=== PATIENT | female | born 1985 | race Caucasian/White ===

== ENCOUNTER 2017-04-24 14:47 | Emergency (ER) | payer OTHER ==
[~2017-04-24] VITALS: Ht 165.1 cm; Wt 60.0 kg
[2017-04-24 14:51] VITALS: Ht 165.1 cm; Wt 60.0 kg
[2017-04-24] MEDS ORDERED: SOD CHLORIDE 0.9% 1,000 ML IV STA (16:30)
--- NOTE | 2017-04-24 16:30 | ERD ---
ER Documentation Chief Complaint Chief Complaint pelvic pain, back pain and watery discharge since yesterday, 17wks HPI This female reports 16-17 weeks , pelvic presure and cramping x 2 days watery d/c this am, denies blood , + dysuria ROS All systems reviewed and are negative except as per history of present illness. PMhx/Soc Medical and Surgical Hx: pt denies Medical Hx, pt denies Surgical Hx Physical Exam Vitals Vital Signs Date Time Temp Pulse Resp B/P Pulse Ox O2 Delivery O2 Flow Rate FiO2 04/24/17 14:51 98.6 103 18 139/80 96 Physical Exam Const: Well-nourished well-appearing well-hydrated 32-year-old female Head: Eyes: ENT: Neck: Resp: Clear to auscultation bilaterally Cardio: Regular rate and rhythm, no murmurs Abd: 's abdomen Skin: Back: No midline or flank tenderness Ext: No cyanosis, or edema Neur: Awake and alert Psych: Normal Mood and Affect Result Diagram: 04/24/17 1736 Results 24 hrs Laboratory Tests Test 04/24/17 17:00 04/24/17 17:36 Urine Color YELLOW Urine Clarity CLEAR Urine pH 6.0 Urine Specific [place] 1.010 Urine Ketones NEGATIVEmg/dL Urine Nitrite NEGATIVEmg/dL Urine Bilirubin NEGATIVEmg/dL Urine Urobilinogen NEGATIVEmg/dL Urine Leukocyte Esterase NEGATIVELeu/ul Urine Microscopic RBC 2/HPF Urine Microscopic WBC 1/HPF Urine Bacteria FEW/HPF Urine Hemoglobin 1+mg/dL Urine Glucose NEGATIVEmg/dL Urine Total Protein NEGATIVEmg/dl White Blood Count 9.110^3/ul Red Blood Count 3.6610^6/ul Hemoglobin 11.6g/dl Hematocrit 34.1% Mean Corpuscular Volume 93.2fl Mean Corpuscular Hemoglobin 31.7pg Mean Corpuscular Hemoglobin Concent 34.0g/dl Red Cell Distribution Width 13.1% Platelet Count 60485^3/UL Mean Platelet Volume 11.6fl Neutrophils % 69.6% Lymphocytes % 21.5% Monocytes % 6.9% Eosinophils % 1.1% Basophils % 0.3% Nucleated Red Blood Cells % 0.0/100WBC Neutrophils # 6.310^3/ul Lymphocytes # 2.010^3/ul Monocytes # 0.610^3/ul Eosinophils # 0.110^3/ul Basophils # 0.010^3/ul Nucleated Red Blood Cells # 0.010^3/ul B-Type Natriuretic Peptide 69PG/ML Beta HCG, Quantitative 49479.0mIU/ml Current Medications Medications (Trade) Dose Ordered Sig/Marry Route PRN Reason Start Time Stop Time Status Last Admin Dose Admin Sodium Chloride (NS) 1,000 ml @ 1,000 mls/hr Q1H STAT IV 04/24/17 16:30 04/24/17 17:29 DC 04/24/17 16:30 Acetaminophen (Tylenol Tab) 650 mg ONCE ONCE PO 04/24/17 17:00 04/24/17 17:01 DC 04/24/17 17:08 Interpretation text CBC shows no evidence of hemorrhage or infections BNP shows no evidence of acute congestive heart failure, and or volume overload. Urinalysis today for evidence of infection, no nitrates, leukocytosis or hematuria. Beta qualitative normal for 17 weeks of Procedures/MDM ROCEDURE: Obstetrical ultrasound CLINICAL INDICATION: Pain TECHNIQUE: Multiple sonographic images of the pelvis were obtained. The images were reviewed on a PACS workstation. COMPARISON: None LMP: 12/25/2016 FINDINGS: There is a single viable intrauterine gestation. Cardiac activity is present with 152 beats per minute. There is a variable presentation. The placenta is anterior and there is a complete placenta previa. There is no evidence for an abruption. There is a normal amount of amniotic fluid with a maximum vertical pocket of 4.9 cm.. Measurements were made in order to determine age. The results are as follows (cm): BPD = 3.97 HC = 14.30 AC = 12.36 FL = 2.37 Estimated gestational age by ultrasound of approximately 17 weeks, 5-day. The estimated date of delivery by ultrasound is 09/27/2017. Estimated gestational age by LMP of approximately 17 weeks, 1 day. The estimated date of delivery by LMP is 10/01/2017. EFW = 202 grams (73rd percentile) IMPRESSION: Single viable intrauterine gestation of approximately 17 weeks, 5 days . The estimated date of delivery is 09/27/2017 . Dating by ultrasound is within 4 days of dating by LMP. Anterior placenta with a complete placenta previa. Normal amount of amniotic fluid. Estimated weight is in the 73rd percentile. RPTAT: EE Uriel Valle, Physician Date Time This 32-year-old female presents to emergency department with low vaginal pressure, pelvic pain and cramping, watery discharge this morning, patient denies any bloody discharge, reports dysuria, and back pain, reports nausea is at baseline. Emergency room course includes serology, urinalysis, and OB ultrasound. Tylenol given for pain, obstetrical ultrasound available before lab testing, impression from radiologist single viable intrauterine gestation approximately 17 weeks, 5 days the estimated date of delivery is 09/27/2017. Anterior placenta with complete placenta previa the on-call OBGYN consulted case discussed. Patient is able to discharge home once all laboratory testing is available and no abnormal findings, follow-up with primary gynecology return to emergency department for worsening of cramping, or vaginal bleeding. Urinalysis negative for leukocytosis, nitrates, microscopic hematuria noted. CBC is negative for infection, positive anemia. Patient to continue her vitamins, follow-up with [employer] as discussed above. Patient is stable with no new complaints during ER course, clinically there is no current evidence to suggest urinary tract infection, pyelonephritis acute abdomen, acute coronary syndromes, pulmonary embolism or any other emergent condition appearing to require further evaluation or hospitalization. I feel the patient is stable for discharge at this time. I have discussed results, examination findings, the treatment plan with the patient and family present prior to discharge. Indications for emergent reevaluation, side effects of medication were also discussed. All questions were answered. Patient verbalizes understanding and agrees with plan of care. Departure Diagnosis: Primary Impression: Placenta previa antepartum in second trimester Condition: Good Patient Instructions: Placenta Previa Additional Instructions: Thank you for for coming to [facility] for your care today. Please ask your nurse or provider if you have questions about your care today and do not leave until all your questions have been answered. Please use any medications given as directed and follow-up with your doctor (or the doctor you were referred to) in the next 2-3 days. If you do not have a primary care doctor you may follow up at the [facility] (listed below). You may also use motrin and tylenol as needed for fever and/or pain unless instructed otherwise by your provider or nurse. Indications for more urgent follow-up have been discussed, but you may return to the Emergency Department at ANY time for any worrisome or worsening symptoms. If you have abdominal pain, please know that no test or exam you received is perfect and you should follow up within 8 hours for continued pain. If you had any imaging studies today, such as an X-Ray or CT Scan, these studies will be reviewed later by a radiologist. You will be called if there are important findings that were not identified today, so make sure the contact information you provided at registration is correct. If you received any narcotic pain control medicine today, such as Vicodin, Morphine or Dilaudid, your coordination and judgment may be affected for a number of hours. Please do not drive or operate heavy machinery, and you may want someone to assist you at home. If you were given a prescription for narcotic medication, be aware that it is very addictive- use sparingly and only if necessary. NOLVIA HERNANDEZ Apr 24, 2017 16:30
[2017-04-24] MEDS ORDERED: ACETAMINOPHEN 325 MG TAB PO ONE (17:00)
--- NOTE | 2017-04-24 17:15 | RADRPT ---
PROCEDURE: Obstetrical ultrasound CLINICAL INDICATION: Pain TECHNIQUE: Multiple sonographic images of the pelvis were obtained. The images were reviewed on a PACS workstation. COMPARISON: None LMP: 12/25/2016 FINDINGS: There is a single viable intrauterine gestation. Cardiac activity is present with 152 beats per minute. There is a variable presentation. The placenta is anterior and there is a complete placenta previa. There is no evidence for an abrupt ion. There is a normal amount of amniotic fluid with a maximum vertical pocket of 4.9 cm.. Measurements were made in order to determine age. The results are as follows (cm): BPD =3.97 HC =14.30 AC =12.36 FL =2.37 Estimated gestational age by ultrasound of approximately 17 weeks, 5-day. The estimated date of delivery by ultrasound is 09/27/2017. Estimated gestational age by LMP of approximately 17 weeks, 1 day. The estimated date of delivery by LMP is 10/01/2017. EFW = 202 grams (73rd percentile) IMPRESSION: Single viable intrauterine gestation of approximately 17 weeks, 5 days . The estimated date of delivery is 09/27/2017 . Dating by ultrasound is within 4 days of dating by LMP. Anterior placenta with a complete placenta previa. Normal amount of amniotic fluid. Estimated weight is in the 73rd percentile. RPTAT: EE Physician Nadya Date Time Electronically viewed and signed by Physician Nadya on 04/24/2017 17:14 /
[2017-04-24 17:31] LABS: ADD UMIC YES; UR ASCORBIC ACID NEGATIVE (NEGATIVE); UR BACTERIA FEW /HPF (NONE SEEN); UR BILIRUBIN (Dip) NEGATIVE (NEGATIVE); UR BLOOD (Dip) 1+ mg/dL (NEGATIVE); UR CLARITY CLEAR (CLEAR); UR COLOR YELLOW (YELLOW); UR GLUCOSE (Dip) NEGATIVE (NEGATIVE); UR KETONES (Dip) NEGATIVE (NEGATIVE); UR LEUKOCYTE ESTERASE (Dip) NEGATIVE Leu/ul (NEGATIVE); UR NITRITE (Dip) NEGATIVE (NEGATIVE); UR RBC 2 /HPF (0-5); UR TOTAL PROTEIN (Dip) NEGATIVE (NEGATIVE); UR UROBILINOGEN (Dip) NEGATIVE (NEGATIVE)
[2017-04-24 18:09] LABS: BASOPHILS % 0.3 % (0.0-2.0); EOSINOPHILS # 0.1 10^3/ul (0.0-0.5); EOSINOPHILS % 1.1 % (0.0-7.0); HEMATOCRIT 34.1 % (37.0-47.0); HEMOGLOBIN 11.6 g/dl (12.0-16.0); LYMPHOCYTES % 21.5 % (15.0-51.0); MEAN CORPUSCULAR HEMOGLOBIN 31.7 pg (29.0-33.0); MEAN CORPUSCULAR VOLUME 93.2 fl (82.0-101.0); MEAN PLATELET VOLUME 11.6 fl (7.4-10.4); MONOCYTE # 0.6 10^3/ul (0.3-0.9); MONOCYTES % 6.9 % (0.0-11.0); NEUTROPHIL # 6.3 10^3/ul (1.6-7.5); NEUTROPHILS % 69.6 % (39.0-77.0); PLATELET COUNT 215 10^3/UL (140-415); RED BLOOD COUNT 3.66 10^6/ul (4.20-5.40); RED CELL DISTRIBUTION WIDTH 13.1 % (11.5-14.5); WHITE BLOOD COUNT 9.1 10^3/ul (4.8-10.8)
[2017-04-24] MEDS ORDERED: ACET500C5 PO (19:32)
[2017-04-24 19:49] VITALS: BP 108/65; PULSE 88; RESP 17
== END 2017-04-24 20:17 | disposition home or self-care (01) ==
LOC: FTE 14:47
DX: O44.02 Complete placenta previa NOS or without hemorrhage, second trimester (principal); R10.2 Pelvic and perineal pain; Z3A.17 17 weeks gestation of pregnancy
CPT/HCPCS: 36415; 76801; 81001; 83880; 84702; 85025; J7030; Z7502; Z7610